=== PATIENT | female | born 1945 | race Caucasian/White ===

== ENCOUNTER 2017-11-19 12:14 | Observation (INO) | payer OTHER ==
--- NOTE | 2017-11-19 12:24 | PDOC ---
History of Present Illness - General Chief Complaint: Shortness of Breath Stated Complaint: DIFFICULTY BREATHING Time Seen by Provider: 11/19/17 12:24 - History of Present Illness Initial Comments: 11/19/17 13:04 Ms. Piper is a 72 yo female w/ pmh of HTN, HLD, DM, and Asthma who presents for evaluation of 2 week cough. Per family she has been coughing up phlegm over this time period and PCP has put her on a steroid taper. She has failed to improve and additionally has been more weak normal. The patient denies chest pain, headache and dizziness. Denies fever, chills, nausea, vomit, diarrhea and constipation. Denies dysuria, frequency, urgency and hematuria. Allergies: Atorvastatin Past History - Past Medical History Allergies/Adverse Reactions: Allergies Allergy/AdvReac Type Severity Reaction Status Date / Time atorvastatin calcium Allergy Mild Verified 11/19/17 12:38 [From Lipitor] Home Medications: Ambulatory Orders Albuterol Sulfate Inhaler - [Ventolin Hfa Inhaler -] 1 - 2 inh PO Q4H 11/19/17 Amoxicillin - [Amoxicillin 500mg Capsule -] 500 mg PO TID 11/19/17 Aspirin [ASA -] 81 mg PO DAILY 11/19/17 Cyanocobalamin (Vitamin B-12) [Vitamin B-12] 5,000 mcg PO DAILY 11/19/17 Fluticasone/Salmeterol [Advair 250-50 Diskus] 1 each IH DAILY 11/19/17 Ibuprofen [Motrin -] 600 mg PO TID 11/19/17 Losartan Potassium 50 mg PO DAILY 11/19/17 Metformin HCl [Metformin HCl ER] 500 mg PO BID 11/19/17 Mirtazapine 30 mg PO HS 11/19/17 Paroxetine HCl [Paxil] 20 mg PO DAILY 11/19/17 Spironolactone 25 mg PO DAILY 11/19/17 Umeclidinium [place] [Incruse Ellipta] 62.5 mcg IH DAILY 11/19/17 predniSONE [Deltasone -] 10 mg PO DAILY 11/19/17 Cancer: No Diabetes: Yes HTN: Yes Hypercholesterolemia: Yes - Suicide/Smoking/Psychosocial Hx Smoking Status: No Smoking History: Never smoked Have you smoked in the past 12 months: No Number of Cigarettes Smoked Daily: 0 Hx Alcohol Use: No Drug/Substance Use Hx: No Substance Use Type: None Hx Substance Use Treatment: No Review of Systems - Review of Systems Comments:: 11/19/17 13:08 GENERAL/CONSTITUTIONAL: No fever or chills. No weakness. HEAD, EYES, EARS, NOSE AND THROAT: No change in vision. No ear pain or discharge. No sore throat. CARDIOVASCULAR: No chest pain or shortness of breath RESPIRATORY: +Constant dry cough. No wheezing or hemoptysis. GASTROINTESTINAL: No nausea, vomiting, diarrhea or constipation. GENITOURINARY: No dysuria, frequency, or change in urination. MUSCULOSKELETAL: No joint or muscle swelling or pain. No neck or back pain. SKIN: No rash NEUROLOGIC: No headache, vertigo, loss of consciousness, or change in strength/ sensation. ENDOCRINE: No increased thirst. No abnormal weight change HEMATOLOGIC/LYMPHATIC: No anemia, easy bleeding, or history of blood clots. ALLERGIC/IMMUNOLOGIC: No hives or skin allergy. *Physical Exam - Physical Exam Comments: 11/19/17 13:08 GENERAL: Awake, alert, and fully oriented, in no acute distress HEAD: No signs of trauma, normocephalic, atraumatic EYES: PERRLA, EOMI, sclera anicteric, conjunctiva clear ENT: Auricles normal inspection, hearing grossly normal, nares patent, oropharynx clear without exudates. Moist mucosa NECK: Normal ROM, supple, no lymphadenopathy, JVD, or masses LUNGS: No distress, speaks full sentences, clear to auscultation bilaterally HEART: Regular rate and rhythm, normal S1 and S2, no murmurs, rubs or gallops, peripheral pulses normal and equal bilaterally. ABDOMEN: Soft, nontender, normoactive bowel sounds. No guarding, no rebound. No masses EXTREMITIES: Normal inspection, Normal range of motion, no edema. No clubbing or cyanosis. NEUROLOGICAL: Cranial nerves II through XII grossly intact. Normal speech, normal gait, no focal sensorimotor deficits SKIN: Warm, Dry, normal turgor, no rashes or lesions noted. ED Treatment Course - LABORATORY CBC & Chemistry Diagram: 11/19/17 13:00 11/19/17 13:00 Medical Decision Making - Medical Decision Making 11/19/17 14:25 Ms. Piper is a 72 yo female w/ pmh as described who presents for evaluation of asthma exacerbation. Patient somewhat improved with duonebs however still weak appearing. CXR significant for enlarged heart with elevated right diaphragm however without acute process. 11/19/17 14:28 Patient continues to cough and has failed outpatient therapy. Chest PA/Lat ordered for closer evaluation of pulmonary status. Inpatient team paged for observation and pulm consult. *DC/Admit/Observation/Transfer Diagnosis at time of Disposition: Asthma exacerbation Qualifiers: Asthma severity: unspecified severity Asthma persistence: unspecified Qualified Code(s): J45.901 - Unspecified asthma with (acute) exacerbation - Discharge Dispostion Decision to Admit order: Yes - Referrals Referrals: aVlente Lockhart PA [Primary Care Provider] - - Patient Instructions - Post Discharge Activity
[2017-11-19] MEDS: ALBUTEROL SO4 2.5/IPRATROPIUM 0.5 INH SOL 3 ML VIAL.NEB. NEB SCH ×5 (12:30→19:55)
[2017-11-19] MEDS ORDERED: ALBUTEROL SO4 2.5/IPRATROPIUM 0.5 INH SOL 3 ML VIAL.NEB. NEB ONE ×2 (12:50→20:17)
[2017-11-19 13:31] LABS: BASO % 0.3 % (0-2.0); EOS % 0.2 % (0-4.5); HEMATOCRIT 42.4 % (32.4-45.2); HEMOGLOBIN 14.1 GM/dL (10.7-15.3); LYMPH % 42.8 % (8-40); MCH 28.1 pg (25.7-33.7); MCHC 33.3 g/dl (32.0-36.0); MEAN CELL VOLUME 84.2 fl (80-96); MEAN PLT VOLUME 8.6 fl (7.5-11.1); MONO % 6.7 % (3.8-10.2); PLATELET COUNT 315 K/MM3 (134-434); RBC 5.04 M/mm3 (3.60-5.2); WHITE BLOOD COUNT 10.8 K/mm3 (4.0-10.0)
[2017-11-19 13:48] LABS: CHLORIDE 107 mmol/L (98-107); POTASSIUM 3.7 mmol/L (3.5-5.1); SODIUM 142 mmol/L (136-145)
--- NOTE | 2017-11-19 13:48 | PDOC ---
Attending Attestation - Resident Resident Name: [email or web address] - ED Attending Attestation I have performed the following: I have examined & evaluated the patient, The case was reviewed & discussed with the resident, I agree w/resident's findings & plan - HPI HPI: 11/19/17 13:46 72-year-old female with history of asthma/emphysema presents with persisting cough despite outpatient treatment with steroid course, now with increasing generalized weakness and malaise and dyspnea, cough productive of sputum, no chest pain or lung pain. Positive chills, no measured fevers. No recent travel. - Physicial Exam PE: 11/19/17 13:46 Vital signs are normal but on my examination patient is visibly tachypnea, speaking about 4-5 words at a time No JVD, heart is regular Lungs are clear, no audible wheezing or focally decreased breath sounds No edema or calf tenderness - Medical Decision Making 11/19/17 13:47 Patient seen and evaluated with the resident. I agree with the overall evaluation, assessment, and management with the following summary of visit: 72-year-old female with history of asthma/emphysema presents with persistent/ worsening cough and dyspnea. Rule out pneumonia, otherwise asthma/COPD exacerbation. Improving with nebulizers Supplemental oxygen Chest x-ray, EKG Labs Admission Heart Score/ECG Review #1 ECG reviewed & interpreted by me at: 12:47 General ECG Interpretation: Sinus Rhythm, Normal Rate (59), Normal Intervals ( qtc 433), No acute ischemic changes
[2017-11-19 14:37] LABS: ALBUMIN 4.1 g/dl (3.4-5.0); ANION GAP 13 (8-16); BLOOD UREA NITROGEN 19 mg/dL (7-18); CALCIUM 9.5 mg/dL (8.5-10.1); CO2 22 mmol/L (21-32); CREATININE 0.9 mg/dL (0.55-1.02); GLUCOSE,RANDOM 79 mg/dL (74-106)
[2017-11-19 14:40] LABS: ALK PHOS 48 U/L (45-117); BILIRUBIN,TOTAL 0.7 mg/dL (0.2-1.0); SGOT/AST 20 U/L (15-37); SGPT/ALT 42 U/L (12-78); TOT PROT 7.1 g/dl (6.4-8.2)
--- NOTE | 2017-11-19 14:52 | EKG ---
Test Reason : Blood Pressure : / mmHG Vent. Rate : 059 BPM Atrial Rate : 059 BPM P-R Int : 136 ms QRS Dur : 086 ms QT Int : 438 ms P-R-T Axes : 037 016 016 degrees QTc Int : 433 ms SINUS BRADYCARDIA NONSPECIFIC T WAVE ABNORMALITY ABNORMAL ECG WHEN COMPARED WITH ECG OF 10-NOV-2012 16:33, NONSPECIFIC T WAVE ABNORMALITY HAS REPLACED INVERTED T WAVES IN ANTERIOR LEADS Confirmed by MD Ernie, Oz ([id number]) on 11/19/2017 2:51:39 PM Referred By: Confirmed By:Oz Klein MD
[2017-11-19] MEDS ORDERED: AZITHROMYCIN IVPB 500 MG in DEXTROSE 5%-WATER - 250 ML IVPB ONE (15:02)
[2017-11-19] MEDS ORDERED: AZITHROMYCIN IVPB 250 ML IVPB ONE (15:51)
[2017-11-19 16:46] LABS: URINE APPEARANCE CLEAR; URINE BILIRUBIN NEGATIVE (<2.0 mg/dL); URINE COLOR STRAW; URINE GLUCOSE (UA) NEGATIVE (NEGATIVE); URINE KETONE NEGATIVE (NEGATIVE); URINE LEUK ESTERASE NEGATIVE (NEGATIVE); URINE NITRITE NEGATIVE (NEGATIVE); URINE PROTEIN NEGATIVE (NEGATIVE); URINE UROBILINOGEN NEGATIVE mg/dL (0.2-1.0)
[2017-11-19] MEDS ORDERED: ALBUTEROL SO4 2.5/IPRATROPIUM 0.5 INH SOL 3 ML VIAL.NEB. NEB PRN (17:20)
[2017-11-19] MEDS ORDERED: ALBUTEROL SO4 18 GM HFA INHALER IH PRN (17:30)
[2017-11-19] MEDS ORDERED: methylPREDNISolone NA SUCC 125 MG/2 ML VIAL IVPUSH SCH (17:30)
[2017-11-19] MEDS ORDERED: CEFTRIAXONE 2 GM in DEXTROSE 5%-WATER 100 ML IVPB ONE (17:30)
--- NOTE | 2017-11-19 17:46 | PN ---
Teaching Attending Note Name of Resident: Brandon Maki ATTENDING PHYSICIAN STATEMENT I saw and evaluated the patient. I reviewed the resident's note and discussed the case with the resident. I agree with the resident's findings and plan as documented with exceptions below. SUBJECTIVE: 72 yof with PMHx of asthma, well controlled, NIDDM, HTN, ?CAD, ?clot in vessel, unclear if cardiac vs PE ( on medication ?blood thinner for 3 years), none recently, comes with 2 weeks of shortness of breath and cough with clear sputum , failed 2 trials of steroid taper, came to ED. Denies any fevers, chills, URI like illness, chest pain, abdominal or urinary symptoms. Overall feels unchanged in the ED. OBJECTIVE: Vital Signs Period Temp Pulse Resp BP Sys/Davila Pulse Ox Last 24 Hr 97.9 F 62 16 134/81 100-100 Intake & Output 11/16/17 11/17/17 11/18/17 11/19/17 23:59 23:59 23:59 23:59 Weight 140 lb GENERAL: Awake, alert, and fully oriented, in no acute distress, no use of acessory muscles of respiration, able to talk in full sentences, comfortably sitting in stretcher. HEAD: Normal with no signs of trauma. EYES: Pupils equal, round and reactive to light, extraocular movements intact, sclera anicteric, conjunctiva clear. No lid lag. EARS, NOSE, THROAT: Ears normal, nares patent, oropharynx clear without exudates. Moist mucous membranes. NECK: soft, supple, no JVD LUNGS: few fine bibasilar rales, good air entry bilaterally, no wheezing noted HEART: S1S2 regular ABDOMEN: Soft, nontender, not distended, normoactive bowel sounds, no guarding, no rebound, no masses. MUSCULOSKELETAL: Normal range of motion at all joints. No bony deformities or tenderness. No CVA tenderness. UPPER EXTREMITIES: 2+ pulses, warm, well-perfused. No cyanosis. No clubbing. No peripheral edema. LOWER EXTREMITIES: 2+ pulses, warm, well-perfused. No calf tenderness. No peripheral edema. NEUROLOGICAL: facial symmetry, moves all extremities freely, grossly nonfocal PSYCHIATRIC: Cooperative. Good eye contact. Appropriate mood and affect. SKIN: Warm, dry, normal turgor, no rashes or lesions noted, normal capillary refill. Home Medication List Medication Instructions Recorded Confirmed Type Albuterol Sulfate Inhaler - 1 - 2 inh PO Q4H 11/19/17 11/19/17 History [Ventolin Hfa Inhaler -] Amoxicillin - [Amoxicillin 500mg 500 mg PO TID 11/19/17 11/19/17 History Capsule -] Aspirin [ASA -] 81 mg PO DAILY 11/19/17 11/19/17 History Cyanocobalamin (Vitamin B-12) 5,000 mcg PO DAILY 11/19/17 11/19/17 History [Vitamin B-12] Fluticasone/Salmeterol [Advair 1 each IH DAILY 11/19/17 11/19/17 History 250-50 Diskus] Ibuprofen [Motrin -] 600 mg PO TID 11/19/17 11/19/17 History Losartan Potassium 50 mg PO DAILY 11/19/17 11/19/17 History Metformin HCl [Metformin HCl ER] 500 mg PO BID 11/19/17 11/19/17 History Mirtazapine 30 mg PO HS 11/19/17 11/19/17 History Paroxetine HCl [Paxil] 20 mg PO DAILY 11/19/17 11/19/17 History Spironolactone 25 mg PO DAILY 11/19/17 11/19/17 History Umeclidinium [place] [Incruse 62.5 mcg IH DAILY 11/19/17 11/19/17 History Ellipta] predniSONE [Deltasone -] 10 mg PO DAILY 11/19/17 11/19/17 History Active Medications Generic Name Dose Route Start Last Admin Trade Name Freq PRN Reason Stop Dose Admin Albuterol Sulfate 2 puff 11/19/17 17:30 Ventolin Hfa Inhaler - IH Q4H PRN SHORTNESS OF BREATH Albuterol/Ipratropium 1 amp 11/19/17 20:00 Duoneb - NEB RTID [facility] Albuterol/Ipratropium 1 amp 11/19/17 17:20 Duoneb - NEB Q6H PRN ASTHMA Aspirin 81 mg 11/20/17 10:00 Asa - PO DAILY [facility] Budesonide/Formoterol Fumarate 2 puff 11/20/17 10:00 Symbicort 80/4.5mcg - IH BID [facility] Cyanocobalamin 5,000 mcg 11/20/17 10:00 Vitamin B12 - PO DAILY [facility] Heparin Sodium (Porcine) 5,000 unit 11/19/17 22:00 Heparin - SQ TID [facility] Ceftriaxone Sodium 2 gm/ 100 mls @ 200 mls/hr 11/19/17 17:30 Dextrose IVPB 11/19/17 17:59 ONCE ONE Protocol Ibuprofen 600 mg 11/19/17 22:00 Motrin - PO TID [facility] Losartan Potassium 50 mg 11/20/17 10:00 Cozaar - PO DAILY [facility] Mirtazapine 30 mg 11/19/17 22:00 Remeron - PO HS [facility] Paroxetine HCl 20 mg 11/20/17 10:00 Paxil - PO DAILY [facility] Prednisone 50 mg 11/19/17 17:45 Deltasone - PO DAILY [facility] Spironolactone 25 mg 11/20/17 10:00 Aldactone - PO DAILY [facility] Laboratory Results - last 24 hr 11/19/17 11/19/17 11/19/17 13:00 13:00 15:52 WBC 10.8 H D RBC 5.04 D Hgb 14.1 D Hct 42.4 MCV 84.2 MCH 28.1 MCHC 33.3 RDW 14.0 Plt Count 315 MPV 8.6 D Absolute Neuts (auto) 5.4 Neutrophils % 50.0 Lymphocytes % 42.8 H Monocytes % 6.7 Eosinophils % 0.2 D Basophils % 0.3 Nucleated RBC % 0 Sodium 142 Potassium 3.7 Chloride 107 Carbon Dioxide 22 Anion Gap 13 BUN 19 H Creatinine 0.9 Creat Clearance w eGFR > 60 Random Glucose 79 Calcium 9.5 Total Bilirubin 0.7 D AST 20 ALT 42 Alkaline Phosphatase 48 Creatine Kinase 95 Troponin I < 0.02 Total Protein 7.1 Albumin 4.1 Urine Color Straw Urine Appearance Clear Urine pH 7.0 Ur Specific [place] 1.008 Urine Protein Negative Urine Glucose (UA) Negative Urine Ketones Negative Urine Blood Negative Urine Nitrite Negative Urine Bilirubin Negative Urine Urobilinogen Negative Ur Leukocyte Esterase Negative CXR image and results reviewed EKG NSR, Flat T in V4, T inversion in V5, no prior available for comparison ASSESSMENT AND PLAN: 72 yof with pMHx of asthma, NIDDM, HTN, ?unclear cardiac vs PE history here with 2 weeks of shortness of breath outpatient steroid treatment x 2. -Dyspnea, ?resolving asthma exacerbation, no clear evidence of PNA, r/o PE, not suspicious for cardiac concerns based on presentation -NIDDM -HTN -?Cardiac history vs PE Plan: PRednisone 50 mg po with taper, standing and prn nebs, Good air entry with no wheezing currently argues against concerning asthma exacerbation. ?Basilar rales. Also unclear if h/o PE. Check CTA chest r/o PE, assess pulmonary parenchyma. Ceftriaxone/azithromycin x 1, further dosing based on chest imaging and clinical course. Continue home spironolactone/losartan. ?cardiac history, check 2D echo. Hold metformin given contrast as above. ISS, diabetic diet. Continue mirtazapine/paroxetine. DVTPPX with lovenox Recurrent visits to health care with steroid treatment x 2 over last 2 week. Will admit to obs, w/u as above. d/c in 24 hours if w/u unrevealing and no new clinical concerns. Plan discussed with patient and family. Total admit time 55 min.
[2017-11-19] MEDS ORDERED: predniSONE 20 MG TABLET (UD) ONE (18:07)
[2017-11-19] MEDS ORDERED: predniSONE 10 MG TABLET (UD) ONE (18:07)
[2017-11-19] MEDS ORDERED: CEFTRIAXONE 2 GM/100 ML BAG IVPB ONE (18:13)
--- NOTE | 2017-11-19 18:34 | HP ---
CHIEF COMPLAINT: cough, sob PCP: Dr. Lockhart HISTORY OF PRESENT ILLNESS: Family at bedside aided in adding to pt history. Pt is a 72 y/o F with PMH HTN, HLD, DM, Asthma, remote "blocked vein" 5 years ago (unclear if cardiac vs pulmonary, but pt apparently had a cath of some kind from the groin ? PCI vs thrombectomy and was placed on blood thinner for 3 years ). She presents to ED with complaint of cough and sob beginning 2 weeks ago. Pt first went to her PCP who gave her a trial of steroids 40mg, daily x 5 days. She felt better with that, but symptoms returned. She went to [facility] 1 week ago and received multiple rounds of nebs for about 4 hours and was sent home with steroids (unknown dose). She now comes to [facility] ED with the same complaint. Cough is productive of clear sputum. Denies fever, chills, sick contacts, recent travel. 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 20 y ago 5 cig/d for many years Alcohol: denies Drugs: denies Family History: denies Allergies atorvastatin calcium [From Lipitor] Allergy (Mild, Verified 11/19/17 12:38) HOME MEDICATIONS: Home Medications Medication Instructions Recorded Albuterol Sulfate Inhaler - 1 - 2 inh PO Q4H 11/19/17 [Ventolin Hfa Inhaler -] Amoxicillin - [Amoxicillin 500mg 500 mg PO TID 11/19/17 Capsule -] Aspirin [ASA -] 81 mg PO DAILY 11/19/17 Cyanocobalamin (Vitamin B-12) 5,000 mcg PO DAILY 11/19/17 [Vitamin B-12] Fluticasone/Salmeterol [Advair 1 each IH DAILY 11/19/17 250-50 Diskus] Ibuprofen [Motrin -] 600 mg PO TID 11/19/17 Losartan Potassium 50 mg PO DAILY 11/19/17 Metformin HCl [Metformin HCl ER] 500 mg PO BID 11/19/17 Mirtazapine 30 mg PO HS 11/19/17 Paroxetine HCl [Paxil] 20 mg PO DAILY 11/19/17 Spironolactone 25 mg PO DAILY 11/19/17 Umeclidinium [place] [Incruse 62.5 mcg IH DAILY 11/19/17 Ellipta] predniSONE [Deltasone -] 10 mg PO DAILY 11/19/17 REVIEW OF SYSTEMS CONSTITUTIONAL: Absent: fever, chills, diaphoresis, generalized weakness, malaise, loss of appetite, weight change HEENT: Absent: rhinorrhea, nasal congestion, throat pain, throat swelling, difficulty swallowing, mouth swelling, ear pain, eye pain, visual changes CARDIOVASCULAR: Absent: chest pain, syncope, palpitations, irregular heart rate, lightheadedness , peripheral edema RESPIRATORY: cough, shortness of breath Absent: , dyspnea with exertion, orthopnea, wheezing, stridor, hemoptysis GASTROINTESTINAL: Absent: abdominal pain, abdominal distension, nausea, vomiting, diarrhea, constipation, melena, hematochezia GENITOURINARY: Absent: dysuria, frequency, urgency, hesitancy, hematuria, flank pain, genital pain MUSCULOSKELETAL: Absent: myalgia, arthralgia, joint swelling, back pain, neck pain SKIN: Absent: rash, itching, pallor HEMATOLOGIC/IMMUNOLOGIC: Absent: easy bleeding, easy bruising, lymphadenopathy, frequent infections ENDOCRINE: Absent: unexplained weight gain, unexplained weight loss, heat intolerance, cold intolerance NEUROLOGIC: Absent: headache, focal weakness or paresthesias, dizziness, unsteady gait, seizure, mental status changes, bladder or bowel incontinence PSYCHIATRIC: Absent: anxiety, depression, suicidal or homicidal ideation, hallucinations. PHYSICAL EXAMINATION Vital Signs - 24 hr 11/19/17 11/19/17 12:35 12:40 Temperature 97.9 F Pulse Rate 62 Respiratory 16 Rate Blood Pressure 134/81 O2 Sat by Pulse 100 100 Oximetry (%) Gen: lying in bed, NAD HEENT: NCAT, EOMI Neck: supple no jvd Cardio: RRR, n s1s2, no m/r/g Pulm: CTA b/l Abd: soft nontender Ext: 2+ pulses, no edema, [place] neg, calves equal Laboratory Results - last 24 hr 11/19/17 11/19/17 11/19/17 13:00 13:00 15:52 WBC 10.8 H D RBC 5.04 D Hgb 14.1 D Hct 42.4 MCV 84.2 MCH 28.1 MCHC 33.3 RDW 14.0 Plt Count 315 MPV 8.6 D Absolute Neuts (auto) 5.4 Neutrophils % 50.0 Lymphocytes % 42.8 H Monocytes % 6.7 Eosinophils % 0.2 D Basophils % 0.3 Nucleated RBC % 0 Sodium 142 Potassium 3.7 Chloride 107 Carbon Dioxide 22 Anion Gap 13 BUN 19 H Creatinine 0.9 Creat Clearance w eGFR > 60 Random Glucose 79 Calcium 9.5 Total Bilirubin 0.7 D AST 20 ALT 42 Alkaline Phosphatase 48 Creatine Kinase 95 Troponin I < 0.02 Total Protein 7.1 Albumin 4.1 Urine Color Straw Urine Appearance Clear Urine pH 7.0 Ur Specific [place] 1.008 Urine Protein Negative Urine Glucose (UA) Negative Urine Ketones Negative Urine Blood Negative Urine Nitrite Negative Urine Bilirubin Negative Urine Urobilinogen Negative Ur Leukocyte Esterase Negative ASSESSMENT/PLAN: Pt is a 72 y/o F with PMH HTN, DM, HLD, Asthma who presents to ED with complaint of cough & SOB. Pt is placed on Obs for asthma refractory to out pt mgt. #Asthma exacerbation -Persists in spite of 2 courses of steroids and an ED visit -no wheezing on exam -CXR with ? opacification of L lower lobe -got nebs and azithro in ED -CXR PA & Lat -r/o PE with CTA chest. Wells score 1.5 if previous episode was a PE -nebs standing and prn -rocephin #HTN -Cozaar -Aldactone #HLD -per pt. no med on home list -lipids #DM -BGM -ISS #FEN -not on fluids -lytes wnl -Na controlled diet #PPx -Hep Sub Q #Dispo -Obs for asthma exacerbation Brandon Maki MD PGY-1 IM Visit type - Emergency Visit Emergency Visit: Yes Care time: The patient presented to the Emergency Department on the above date and was hospitalized for further evaluation of their emergent condition. - New Patient This patient is new to me today: Yes Date on this admission: 11/19/17 - Critical Care Critical Care patient: No Hospitalist Screening - Colonoscopy Questionnaire Colonoscopy Questionnaire: Colonoscopy Questionnaire - Patient: 50 - 75 years old and never had a screening colonoscopy: Unknown History of colon or rectal polyps, or CA: Unknown History of IBD, Crohn's disease or UC: Unknown History of abdominal radiation therapy as a child: Unknown - Relative: 1 with colon or rectal CA, or polyps at age 60 or younger: Unknown Colon or rectal CA diagnosed at age 45 or younger: Unknown Multiple relatives with colon or rectal CA: Unknown - Outcome: Screening Result: Negative Screen
[2017-11-19] MEDS: predniSONE 20 MG TABLET (UD) PO SCH (19:28)
[2017-11-19] MEDS ORDERED: MIRTAZAPINE 30 MG TABLET (FP) PO SCH (22:00)
[2017-11-19] MEDS: IBUPROFEN 600 MG TABLET (FP) PO SCH (23:02)
[2017-11-19] MEDS: HEPARIN NA (PORCINE) 5,000 UNITS/ML 1ML VIAL SQ SCH (23:03)
[2017-11-19] MEDS: INSULIN SLIDING SCALE (NOVOLOG) 1 VIAL SQ SCH (23:08)
[2017-11-20 02:09] VITALS: BMI 22.8
[2017-11-20] MEDS: IBUPROFEN 600 MG TABLET (FP) PO SCH ×2 (05:37→15:03)
[2017-11-20] MEDS: HEPARIN NA (PORCINE) 5,000 UNITS/ML 1ML VIAL SQ SCH ×2 (05:38→15:03)
[2017-11-20] MEDS: INSULIN SLIDING SCALE (NOVOLOG) 1 VIAL SQ SCH ×3 (06:29→17:18)
[2017-11-20] MEDS: ALBUTEROL SO4 2.5/IPRATROPIUM 0.5 INH SOL 3 ML VIAL.NEB. NEB SCH ×2 (08:05→14:20)
[2017-11-20 08:20] LABS: BASO % 0.3 % (0-2.0); HEMATOCRIT 41.1 % (32.4-45.2); HEMOGLOBIN 13.9 GM/dL (10.7-15.3); LYMPH % 12.2 % (8-40); MCH 28.8 pg (25.7-33.7); MCHC 33.8 g/dl (32.0-36.0); MEAN CELL VOLUME 85.3 fl (80-96); MEAN PLT VOLUME 8.1 fl (7.5-11.1); MONO % 1.8 % (3.8-10.2); NEUT % 85.7 % (42.8-82.8); PLATELET COUNT 284 K/MM3 (134-434); RBC 4.82 M/mm3 (3.60-5.2); RDW 14.3 % (11.6-15.6); WHITE BLOOD COUNT 8.2 K/mm3 (4.0-10.0)
[2017-11-20 08:35] LABS: PROTHROMBIN TIME (PATIENT) 11.3 SEC (9.7-13.0)
[2017-11-20 08:47] LABS: ALBUMIN 3.7 g/dl (3.4-5.0); ANION GAP 8 (8-16); BLOOD UREA NITROGEN 13 mg/dL (7-18); CALCIUM 8.9 mg/dL (8.5-10.1); CHLORIDE 107 mmol/L (98-107); CO2 27 mmol/L (21-32); GLUCOSE,RANDOM 133 mg/dL (74-106); MAGNESIUM 2.5 mg/dL (1.8-2.4); POTASSIUM 4.4 mmol/L (3.5-5.1); SGOT/AST 13 U/L (15-37); SODIUM 142 mmol/L (136-145)
[2017-11-20 08:50] LABS: ALK PHOS 46 U/L (45-117); BILIRUBIN,TOTAL 0.5 mg/dL (0.2-1.0); CREATININE 0.9 mg/dL (0.55-1.02); PHOSPHOROUS 5.4 mg/dL (2.5-4.9); SGPT/ALT 40 U/L (12-78); TOT PROT 6.9 g/dl (6.4-8.2)
[2017-11-20 08:55] LABS: CHOLESTEROL 183 mg/dL (50-200); HDL CHOLESTEROL 70 mg/dL (40-60); TRIGLYCERIDES 63 mg/dL (35-160)
[2017-11-20] MEDS ORDERED: SPIRONOLACTONE 25 MG TABLET (FP) PO SCH (10:00)
[2017-11-20] MEDS ORDERED: CYANOCOBALAMIN 1,000 MCG TABLET (FP) PO SCH (10:00)
[2017-11-20] MEDS ORDERED: PARoxetine HCL 20 MG TABLET (FP) PO SCH (10:00)
[2017-11-20] MEDS ORDERED: ASPIRIN 81 MG CHEWABLE TABLETS PO SCH (10:00)
[2017-11-20] MEDS ORDERED: AZITHROMYCIN 250 MG TABLET PO SCH (10:00)
[2017-11-20] MEDS ORDERED: BUDESONIDE/FORMETEROL FUMARATE 80/4.5 mcg INHALER IH SCH (10:00)
[2017-11-20] MEDS ORDERED: LOSARTAN POTASSIUM 50 MG TABLET (FP) PO SCH (10:00)
[2017-11-20] MEDS: predniSONE 20 MG TABLET (UD) PO SCH (11:36)
--- NOTE | 2017-11-20 14:50 | PN ---
Physical Exam: SUBJECTIVE: Patient seen and examined at bedside. No complaints. OBJECTIVE: Vital Signs Period Temp Pulse Resp BP Sys/Davila Pulse Ox Last 24 Hr 97.0 F-98.2 F 60-82 17-20 118-152/64-96 96-97 Gen: lying in bed, NAD HEENT: NCAT, EOMI Neck: supple no jvd Cardio: RRR, n s1s2, no m/r/g Pulm: CTA b/l Abd: soft nontender Ext: 2+ pulses, no edema, Wheatley neg, calves equal Laboratory Results - last 24 hr 11/19/17 11/19/17 11/20/17 15:52 23:06 05:37 WBC RBC Hgb Hct MCV MCH MCHC RDW Plt Count MPV Absolute Neuts (auto) Neutrophils % Lymphocytes % Monocytes % Eosinophils % Basophils % Nucleated RBC % PT with INR INR Sodium Potassium Chloride Carbon Dioxide Anion Gap BUN Creatinine Creat Clearance w eGFR POC Glucometer 112 132 Random Glucose Calcium Phosphorus Magnesium Total Bilirubin AST ALT Alkaline Phosphatase Total Protein Albumin Triglycerides Cholesterol Total LDL Cholesterol HDL Cholesterol Urine Color Straw Urine Appearance Clear Urine pH 7.0 Ur Specific [place] 1.008 Urine Protein Negative Urine Glucose (UA) Negative Urine Ketones Negative Urine Blood Negative Urine Nitrite Negative Urine Bilirubin Negative Urine Urobilinogen Negative Ur Leukocyte Esterase Negative 11/20/17 11/20/17 11/20/17 07:20 07:20 07:20 WBC 8.2 RBC 4.82 Hgb 13.9 Hct 41.1 MCV 85.3 MCH 28.8 MCHC 33.8 RDW 14.3 Plt Count 284 MPV 8.1 Absolute Neuts (auto) 7.0 Neutrophils % 85.7 H D Lymphocytes % 12.2 D Monocytes % 1.8 L Eosinophils % 0.0 D Basophils % 0.3 Nucleated RBC % 0 PT with INR 11.30 INR 1.00 Sodium 142 Potassium 4.4 Chloride 107 Carbon Dioxide 27 Anion Gap 8 BUN 13 Creatinine 0.9 Creat Clearance w eGFR > 60 POC Glucometer Random Glucose 133 H Calcium 8.9 Phosphorus 5.4 H Magnesium 2.5 H Total Bilirubin 0.5 D AST 13 L ALT 40 Alkaline Phosphatase 46 Total Protein 6.9 Albumin 3.7 Triglycerides Cholesterol Total LDL Cholesterol HDL Cholesterol Urine Color Urine Appearance Urine pH Ur Specific [place] Urine Protein Urine Glucose (UA) Urine Ketones Urine Blood Urine Nitrite Urine Bilirubin Urine Urobilinogen Ur Leukocyte Esterase 11/20/17 11/20/17 07:20 11:56 WBC RBC Hgb Hct MCV MCH MCHC RDW Plt Count MPV Absolute Neuts (auto) Neutrophils % Lymphocytes % Monocytes % Eosinophils % Basophils % Nucleated RBC % PT with INR INR Sodium Potassium Chloride Carbon Dioxide Anion Gap BUN Creatinine Creat Clearance w eGFR POC Glucometer 78 Random Glucose Calcium Phosphorus Magnesium Total Bilirubin AST ALT Alkaline Phosphatase Total Protein Albumin Triglycerides 63 Cholesterol 183 Total LDL Cholesterol 100 HDL Cholesterol 70 H Urine Color Urine Appearance Urine pH Ur Specific [place] Urine Protein Urine Glucose (UA) Urine Ketones Urine Blood Urine Nitrite Urine Bilirubin Urine Urobilinogen Ur Leukocyte Esterase Active Medications Generic Name Dose Route Start Last Admin Trade Name Freq PRN Reason Stop Dose Admin Albuterol Sulfate 2 puff 11/19/17 17:30 Ventolin Hfa Inhaler - IH Q4H PRN SHORTNESS OF BREATH Albuterol/Ipratropium 1 amp 11/19/17 20:00 11/20/17 14:20 Duoneb - NEB 1 amp RTID WILMAR Administration Albuterol/Ipratropium 1 amp 11/19/17 17:20 Duoneb - NEB Q6H PRN ASTHMA Aspirin 81 mg 11/20/17 10:00 11/20/17 11:36 Asa - PO 81 mg DAILY WILMAR Administration Azithromycin 500 mg 11/20/17 10:00 11/20/17 11:37 Zithromax - PO 11/21/17 10:01 500 mg DAILY WILMAR Administration Budesonide/Formoterol Fumarate 2 puff 11/20/17 10:00 11/20/17 11:32 Symbicort 80/4.5mcg - IH 2 puff BID WILMAR Administration Cyanocobalamin 5,000 mcg 11/20/17 10:00 11/20/17 11:37 Vitamin B12 - PO 5,000 mcg DAILY WILMAR Administration Heparin Sodium (Porcine) 5,000 unit 11/19/17 22:00 11/20/17 05:38 Heparin - SQ 5,000 unit TID WILMAR Administration Ibuprofen 600 mg 11/19/17 22:00 11/20/17 05:37 Motrin - PO 600 mg TID WILMAR Administration Insulin Aspart 1 vial 11/19/17 22:00 11/20/17 12:13 Novolog Vial Sliding Scale - SQ Not Given ACHS WILMAR Protocol Losartan Potassium 50 mg 11/20/17 10:00 11/20/17 11:36 Cozaar - PO 50 mg DAILY WILMAR Administration Mirtazapine 30 mg 11/19/17 22:00 11/19/17 23:03 Remeron - PO 30 mg HS WILMAR Administration Paroxetine HCl 20 mg 11/20/17 10:00 11/20/17 11:36 Paxil - PO 20 mg DAILY WILMAR Administration Prednisone 50 mg 11/19/17 17:45 11/20/17 11:36 Deltasone - PO 50 mg DAILY WILMAR Administration Spironolactone 25 mg 11/20/17 10:00 11/20/17 11:36 Aldactone - PO 25 mg DAILY WILMAR Administration ASSESSMENT/PLAN: Pt is a 72 y/o F with PMH HTN, DM, HLD, Asthma who presents to ED with complaint of cough & SOB. Pt is placed on Obs for asthma refractory to out pt mgt. #Asthma exacerbation -Persists in spite of 2 courses of steroids and an ED visit -no wheezing on exam -CXR with ? opacification of L lower lobe -got nebs and azithro in ED -CXR PA & Lat. Cardiomegally. Plate like atalectasis -r/o PE with CTA chest. Wells score 1.5 if previous episode was a PE. Chest CTA neg -nebs standing and prn -rocephin x 1 -echo unremarkable #HTN -Cozaar -Aldactone #HLD -per pt. no med on home list -lipids #DM -BGM -ISS #FEN -not on fluids -lytes wnl -Na controlled diet #PPx -Hep Sub Q #Dispo -Obs for asthma exacerbation Brandon Maki MD PGY-1 IM
--- NOTE | 2017-11-20 15:44 | PN ---
Teaching Attending Note Name of Resident: Brandon Maki ATTENDING PHYSICIAN STATEMENT I saw and evaluated the patient. I reviewed the resident's note and discussed the case with the resident. I agree with the resident's findings and plan as documented with exceptions below. SUBJECTIVE: patient seen and examined. breathing improved, no complaints. OBJECTIVE: Vital Signs Period Temp Pulse Resp BP Sys/Davila Pulse Ox Last 24 Hr 97.0 F-98.2 F 60-82 17-20 118-152/64-96 96-97 Intake & Output 11/17/17 11/18/17 11/19/17 11/20/17 23:59 23:59 23:59 23:59 Intake Total 100 100 Balance 100 100 Weight 140 lb 133 lb 3 oz General: sitting in bed in no acute distress Chest: no wheezing, good air entry ABdomen:soft, NT Extremities: no edema Laboratory Results - last 24 hr 11/19/17 11/19/17 11/20/17 15:52 23:06 05:37 WBC RBC Hgb Hct MCV MCH MCHC RDW Plt Count MPV Absolute Neuts (auto) Neutrophils % Lymphocytes % Monocytes % Eosinophils % Basophils % Nucleated RBC % PT with INR INR Sodium Potassium Chloride Carbon Dioxide Anion Gap BUN Creatinine Creat Clearance w eGFR POC Glucometer 112 132 Random Glucose Calcium Phosphorus Magnesium Total Bilirubin AST ALT Alkaline Phosphatase Total Protein Albumin Triglycerides Cholesterol Total LDL Cholesterol HDL Cholesterol Urine Color Straw Urine Appearance Clear Urine pH 7.0 Ur Specific [place] 1.008 Urine Protein Negative Urine Glucose (UA) Negative Urine Ketones Negative Urine Blood Negative Urine Nitrite Negative Urine Bilirubin Negative Urine Urobilinogen Negative Ur Leukocyte Esterase Negative 11/20/17 11/20/17 11/20/17 07:20 07:20 07:20 WBC 8.2 RBC 4.82 Hgb 13.9 Hct 41.1 MCV 85.3 MCH 28.8 MCHC 33.8 RDW 14.3 Plt Count 284 MPV 8.1 Absolute Neuts (auto) 7.0 Neutrophils % 85.7 H D Lymphocytes % 12.2 D Monocytes % 1.8 L Eosinophils % 0.0 D Basophils % 0.3 Nucleated RBC % 0 PT with INR 11.30 INR 1.00 Sodium 142 Potassium 4.4 Chloride 107 Carbon Dioxide 27 Anion Gap 8 BUN 13 Creatinine 0.9 Creat Clearance w eGFR > 60 POC Glucometer Random Glucose 133 H Calcium 8.9 Phosphorus 5.4 H Magnesium 2.5 H Total Bilirubin 0.5 D AST 13 L ALT 40 Alkaline Phosphatase 46 Total Protein 6.9 Albumin 3.7 Triglycerides Cholesterol Total LDL Cholesterol HDL Cholesterol Urine Color Urine Appearance Urine pH Ur Specific [place] Urine Protein Urine Glucose (UA) Urine Ketones Urine Blood Urine Nitrite Urine Bilirubin Urine Urobilinogen Ur Leukocyte Esterase 11/20/17 11/20/17 07:20 11:56 WBC RBC Hgb Hct MCV MCH MCHC RDW Plt Count MPV Absolute Neuts (auto) Neutrophils % Lymphocytes % Monocytes % Eosinophils % Basophils % Nucleated RBC % PT with INR INR Sodium Potassium Chloride Carbon Dioxide Anion Gap BUN Creatinine Creat Clearance w eGFR POC Glucometer 78 Random Glucose Calcium Phosphorus Magnesium Total Bilirubin AST ALT Alkaline Phosphatase Total Protein Albumin Triglycerides 63 Cholesterol 183 Total LDL Cholesterol 100 HDL Cholesterol 70 H Urine Color Urine Appearance Urine pH Ur Specific [place] Urine Protein Urine Glucose (UA) Urine Ketones Urine Blood Urine Nitrite Urine Bilirubin Urine Urobilinogen Ur Leukocyte Esterase ASSESSMENT AND PLAN: 72 yof with pMHx of asthma, NIDDM, HTN, ?unclear cardiac vs PE history here with 2 weeks of shortness of breath outpatient steroid treatment x 2. -Dyspnea, ?resolving asthma exacerbation, no clear evidence of PNA, r/o PE, not suspicious for cardiac concerns based on presentation -NIDDM -HTN -?Cardiac history vs PE Plan: breathing improved, no oxygen needs. CTA chest and 2D echo non concerning. short prednisone taper. Hold metformin x 48 hours post contrast. Discussed with patient and family at bedside. D/c home today.
--- NOTE | 2017-11-20 15:51 | DS ---
Physical Exam: SUBJECTIVE: Patient seen and examined at bedside. No complaints. OBJECTIVE: Vital Signs Period Temp Pulse Resp BP Sys/Davila Pulse Ox Last 24 Hr 97.0 F-98.2 F 60-82 17-20 118-152/64-96 96-97 PHYSICAL EXAM Gen: lying in bed, NAD HEENT: NCAT, EOMI Neck: supple no jvd Cardio: RRR, n s1s2, no m/r/g Pulm: CTA b/l Abd: soft nontender Ext: 2+ pulses, no edema, Wheatley neg, calves equal LABS Laboratory Results - last 24 hr 11/19/17 11/19/17 11/20/17 15:52 23:06 05:37 WBC RBC Hgb Hct MCV MCH MCHC RDW Plt Count MPV Absolute Neuts (auto) Neutrophils % Lymphocytes % Monocytes % Eosinophils % Basophils % Nucleated RBC % PT with INR INR Sodium Potassium Chloride Carbon Dioxide Anion Gap BUN Creatinine Creat Clearance w eGFR POC Glucometer 112 132 Random Glucose Calcium Phosphorus Magnesium Total Bilirubin AST ALT Alkaline Phosphatase Total Protein Albumin Triglycerides Cholesterol Total LDL Cholesterol HDL Cholesterol Urine Color Straw Urine Appearance Clear Urine pH 7.0 Ur Specific [place] 1.008 Urine Protein Negative Urine Glucose (UA) Negative Urine Ketones Negative Urine Blood Negative Urine Nitrite Negative Urine Bilirubin Negative Urine Urobilinogen Negative Ur Leukocyte Esterase Negative 11/20/17 11/20/17 11/20/17 07:20 07:20 07:20 WBC 8.2 RBC 4.82 Hgb 13.9 Hct 41.1 MCV 85.3 MCH 28.8 MCHC 33.8 RDW 14.3 Plt Count 284 MPV 8.1 Absolute Neuts (auto) 7.0 Neutrophils % 85.7 H D Lymphocytes % 12.2 D Monocytes % 1.8 L Eosinophils % 0.0 D Basophils % 0.3 Nucleated RBC % 0 PT with INR 11.30 INR 1.00 Sodium 142 Potassium 4.4 Chloride 107 Carbon Dioxide 27 Anion Gap 8 BUN 13 Creatinine 0.9 Creat Clearance w eGFR > 60 POC Glucometer Random Glucose 133 H Calcium 8.9 Phosphorus 5.4 H Magnesium 2.5 H Total Bilirubin 0.5 D AST 13 L ALT 40 Alkaline Phosphatase 46 Total Protein 6.9 Albumin 3.7 Triglycerides Cholesterol Total LDL Cholesterol HDL Cholesterol Urine Color Urine Appearance Urine pH Ur Specific [place] Urine Protein Urine Glucose (UA) Urine Ketones Urine Blood Urine Nitrite Urine Bilirubin Urine Urobilinogen Ur Leukocyte Esterase 11/20/17 11/20/17 07:20 11:56 WBC RBC Hgb Hct MCV MCH MCHC RDW Plt Count MPV Absolute Neuts (auto) Neutrophils % Lymphocytes % Monocytes % Eosinophils % Basophils % Nucleated RBC % PT with INR INR Sodium Potassium Chloride Carbon Dioxide Anion Gap BUN Creatinine Creat Clearance w eGFR POC Glucometer 78 Random Glucose Calcium Phosphorus Magnesium Total Bilirubin AST ALT Alkaline Phosphatase Total Protein Albumin Triglycerides 63 Cholesterol 183 Total LDL Cholesterol 100 HDL Cholesterol 70 H Urine Color Urine Appearance Urine pH Ur Specific [place] Urine Protein Urine Glucose (UA) Urine Ketones Urine Blood Urine Nitrite Urine Bilirubin Urine Urobilinogen Ur Leukocyte Esterase HOSPITAL COURSE: Date of Admission:11/19/17 Date of Discharge: 11/20/17 Pt is a 72 y/o F with PMH HTN, DM, HLD, Asthma who presents to ED with complaint of cough & SOB. Pt is placed on Obs for asthma refractory to out pt mgt. Asthma exacerbation was persists in spite of 2 courses of steroids and an ED visit. Pt had no wheezing on initial exam. She had a CXR with ? opacification of L lower lobe. She got nebs and azithro in ED. CXR PA & Lat showed Cardiomegally and plate like atalectasis. PE was ruled out with CTA chest. Wells score 1.5 if previous episode was a PE. Nebs were given standing and prn. She was given rocephin x 1. Echo was unremarkable. Pt's HTN was treated with Cozaar, and Aldactone HLD per pt. No med on home list. Lipids were within normal limits. Pt's DM was treated with BGM and ISS. Pt is stable for discharge. Minutes to complete discharge: 30 Discharge Summary Reason For Visit: EXACERBATION OF ASTHMA Current Active Problems Asthma exacerbation (Acute) Condition: Good - Instructions Diet, Activity, Other Instructions: You were in the hospital because of an asthma exacerbation. You need to follow up with your primary care doctor in 1 week. Make sure you use your inhaler as directed and avoid any known triggers of your asthma. Stop your old regimen of prednisone. Take prednisone 40mg daily for 2 days, 30mg for 2 days, 20mg for 2 days, 10mg for 2 days, then stop. Take 1 dose of Azithromycin tomorrow. Since you received CT scan with dye, do not take Metformin for 2 days, can resume on Saturday or Saturday if no concerns. Recommend to keep any eye on your blood sugars till then. Recommend checking before meals and at bedtime, maintain a diary and notify doctor if persistently > 200. Resume the rest of your home medications as directed and follow up with your primary doctor. Referrals: Valente Lockhart PA [Primary Care Provider] - 1 Week Disposition: HOME - Home Medications Comprehensive Discharge Medication List: Ambulatory Orders Albuterol Sulfate Inhaler - [Ventolin HFA Inhaler -] 1 - 2 inh PO Q4H 11/19/17 Aspirin [ASA -] 81 mg PO DAILY 11/19/17 Cyanocobalamin (Vitamin B-12) [Vitamin B-12] 5,000 mcg PO DAILY 11/19/17 Fluticasone/Salmeterol [Advair 250-50 Diskus] 1 each IH DAILY 11/19/17 Ibuprofen [Motrin -] 600 mg PO TID 11/19/17 Losartan Potassium 50 mg PO DAILY 11/19/17 Mirtazapine 30 mg PO HS 11/19/17 Paroxetine HCl [Paxil] 20 mg PO DAILY 11/19/17 Spironolactone 25 mg PO DAILY 11/19/17 Umeclidinium [place] [Incruse Ellipta] 62.5 mcg IH DAILY 11/19/17 Azithromycin [Zithromax 250mg Tablets -] 500 mg PO DAILY #1 tablet 11/20/17 Metformin HCl [Metformin HCl ER] 500 mg PO ASDIR 30 Days #30 tab 11/20/17 predniSONE [Deltasone -] See Taper PO ASDIR #20 tab 11/20/17 This patient is new to me today: No Emergency Visit: No Critical Care patient: No - Discharge Referral Referred to [facility] No
[2017-11-20 16:35] VITALS: BP 137/80; PULSE 75; TEMP 98.9
== END 2017-11-20 18:18 | disposition home or self-care (01) ==
LOC: JER 12:14 → JERBED 15:14 → J6S 22:19
PROVIDERS: ADMIT Hospitalist; ATTEND Hospitalist
PROC: 3E03329 Introduction of Other Anti-infective into Peripheral Vein, Percutaneous Approach (ICD-10-PCS; principal; 2017-11-19)
PROC: 3E013GC Introduction of Other Therapeutic Substance into Subcutaneous Tissue, Percutaneous Approach (ICD-10-PCS; 2017-11-19)
PROC: 3E0F7GC Introduction of Other Therapeutic Substance into Respiratory Tract, Via Natural or Artificial Opening (ICD-10-PCS; 2017-11-19)
DX: J45.901 Unspecified asthma with (acute) exacerbation (principal); J43.9 Emphysema, unspecified; I10 Essential (primary) hypertension; E78.5 Hyperlipidemia, unspecified; E11.9 Type 2 diabetes mellitus without complications; Z79.82 Long term (current) use of aspirin; Z79.84 Long term (current) use of oral hypoglycemic drugs
CPT/HCPCS: 36415; 71045-TC-FY; 71046-TC-FY; 71275-TC; 80053; 80061; 81003; 82550; 82962; 83721; 83735; 84100; 84484; 85025; 85610; 87086; 93005; 93010; 93306-TC; 94640; 94761; 96365; 96367; 96372; 99285-25; G0378; J1644; J7620

== ENCOUNTER 2019-07-29 08:00 | Day surgery (SDC) | payer OTHER ==
[~2019-07-29 08:00] MED LIST: ACETAMINOPHEN 325 MG TABLET (FP) PO PRN; BUPIVACAINE HCL/PF 0.75% 10 ML VIAL PNB ONE; CYCLOPENTOLATE HCL 1% OPHTH SOLN 2 ML BOTTLE OP SCH; KETOROLAC TROMETHAMINE 0.5% EYE DROP 1 DROP DROPS OP SCH; LIDOCAINE HCL/PF 2% SDV 5ML VIAL INF ONE; LIDOCAINE HCL/PF 2% SDV 5ML VIAL PNB ONE; OFLOXACIN 0.3% OPHTHALMIC SOLUTION 5 ML BOTTLE OP SCH; PHENYLEPHRINE 2.5% OPHTH SOLN 15 ML BOTTLE OP SCH; TROPICAMIDE 1% OPHTH SOLN 15 ML BOTTLE OP SCH
[2019-07-29 09:12] VITALS: BMI 27.3
[2019-07-29] MEDS ORDERED: OFLOXACIN 0.3% OPHTHALMIC SOLUTION 5 ML BOTTLE ONE (09:14)
[2019-07-29] MEDS ORDERED: PHENYLEPHRINE 2.5% OPHTH SOLN 15 ML BOTTLE ONE (09:14)
[2019-07-29] MEDS ORDERED: KETOROLAC TROMETHAMINE 0.5% EYE DROP 1 DROP DROPS ONE (09:14)
[2019-07-29] MEDS ORDERED: TROPICAMIDE 1% OPHTH SOLN 15 ML BOTTLE ONE (09:14)
[2019-07-29] MEDS ORDERED: CYCLOPENTOLATE HCL 1% OPHTH SOLN 2 ML BOTTLE ONE (09:14)
[2019-07-29] MEDS ORDERED: TROPICAMIDE 1% OPHTH SOLN 15 ML BOTTLE OD ONE ×3 (09:25→09:45)
[2019-07-29] MEDS ORDERED: CYCLOPENTOLATE HCL 1% OPHTH SOLN 2 ML BOTTLE OD ONE ×3 (09:25→09:45)
[2019-07-29] MEDS ORDERED: KETOROLAC TROMETHAMINE 0.5% EYE DROP 1 DROP DROPS OD ONE ×3 (09:25→09:45)
[2019-07-29] MEDS ORDERED: PHENYLEPHRINE 2.5% OPHTH SOLN 15 ML BOTTLE OD ONE ×3 (09:25→09:45)
[2019-07-29] MEDS ORDERED: OFLOXACIN 0.3% OPHTHALMIC SOLUTION 5 ML BOTTLE OD ONE ×3 (09:25→09:45)
[2019-07-29] MEDS ORDERED: PROPOFOL 20 ML ONE (10:25)
[2019-07-29] MEDS ORDERED: BUPIVACAINE HCL/PF 0.75% 10 ML VIAL ONE (10:29)
[2019-07-29] MEDS ORDERED: EPINEPHrine/PF 1 MG/1 ML (1:1,000) AMPULE ONE (10:29)
[2019-07-29] MEDS ORDERED: LIDOCAINE HCL/PF 2% SDV 5ML VIAL ONE (10:29)
[2019-07-29] MEDS ORDERED: LIDOCAINE HCL/PF 1% SDV 5ML VIAL ONE (10:30)
[2019-07-29] MEDS ORDERED: BUPIVACAINE HCL/PF 0.75% 10 ML VIAL PNB ONE ×2 (10:41→10:42)
[2019-07-29] MEDS ORDERED: LIDOCAINE HCL/PF 2% SDV 5ML VIAL PNB ONE (10:41)
[2019-07-29] MEDS ORDERED: LIDOCAINE HCL/PF 2% SDV 5ML VIAL INF ONE (10:42)
[2019-07-29] MEDS ORDERED: LIDOCAINE HCL 1% PRESERVATIVE FREE - 30ML VIAL IO ONE (10:52)
[2019-07-29] MEDS ORDERED: CHONDROITIN SU A/HYALUR SOD 1 KIT IO ONE (10:53)
[2019-07-29] MEDS ORDERED: EPINEPHrine/PF 1 MG/1 ML (1:1,000) AMPULE SQ ONE (10:55)
[2019-07-29 11:27] VITALS: TEMP 98.3
[2019-07-29 13:02] VITALS: BP 142/71; PULSE 66
--- NOTE | 2019-07-29 16:36 | SPEC ---
DATE OF OPERATION: DATE OF DICTATION: 07/29/2019 OPERATION: Phacoemulsification with posterior chamber intraocular lens implantation, right eye, lens used [id number], 25.0 Diopter, Serial No. [id number]. PREOPERATIVE DIAGNOSIS: Cataract right eye. POSTOPERATIVE DIAGNOSIS: Cataract right eye. SURGEON: Kristan Cabrera M.D. ANESTHESIA: Peribulbar/Modified [place]/MAC. COMPLICATIONS: None. PROCEDURE: The patient was brought to the operating room and correctly identified along with the operative site and a correct intraocular lens bruce. The patient was then given a peribulbar block under sedation with 5 mL of a 1:1 mixture of 2% Lidocaine and 0.5% Bupivacaine. Two to 3 mL of the same mixture was given as a modified [place] block. The eye was then prepped and draped in the usual sterile fashion including 5% Betadine solution in the conjunctival sac and an eyelid drape. An eyelid speculum was then placed into the eye. A paracentesis port was created. Viscoelastic was injected to inflate the anterior chamber. A temporal clear corneal wound was created. A continuous circular capsulorrhexis was performed. The nucleus was then hydro-dissected and removed phacoemulsification via the [id number] approach. The remaining cortical material was irrigated and aspirated from the eye. Viscoelastic was injected to inflate the capsular bag. The lens was injected into the capsular bag. Viscoelastic was then irrigated and aspirated from the eye. The intraocular lens was noted to be well centered and covered by the anterior capsular border. All wounds were found to be watertight. Topical Vancomycin was given. The eye patch and shield were placed. The patient was discharged from the operating room in stable condition. KRISTAN CABRERA M.D. RAFAELA/[id number]
== END 2019-07-29 12:45 | disposition home or self-care (01) ==
LOC: JASU-SURG 08:00
PROVIDERS: ATTEND Ophthalmology
PROC: 08RJ3JZ Replacement of Right Lens with Synthetic Substitute, Percutaneous Approach (ICD-10-PCS; principal; 2019-07-29 10:00)
DX: H26.9 Unspecified cataract (principal); E11.9 Type 2 diabetes mellitus without complications; I10 Essential (primary) hypertension
CPT/HCPCS: 82962

== ENCOUNTER 2019-08-12 07:18 | Day surgery (SDC) | payer OTHER ==
[2019-08-11 09:10] VITALS: BMI 27.3
[~2019-08-12 07:18] MED LIST changes: -BUPIVACAINE HCL/PF 0.75% 10 ML VIAL PNB ONE; +CHONDROITIN SU A/HYALUR SOD 1 KIT IO ONE; -CYCLOPENTOLATE HCL 1% OPHTH SOLN 2 ML BOTTLE OP SCH; -KETOROLAC TROMETHAMINE 0.5% EYE DROP 1 DROP DROPS OP SCH; +LIDOCAINE HCL 1% PRESERVATIVE FREE - 30ML VIAL IO ONE; -LIDOCAINE HCL/PF 2% SDV 5ML VIAL INF ONE; -LIDOCAINE HCL/PF 2% SDV 5ML VIAL PNB ONE; -OFLOXACIN 0.3% OPHTHALMIC SOLUTION 5 ML BOTTLE OP SCH; -PHENYLEPHRINE 2.5% OPHTH SOLN 15 ML BOTTLE OP SCH; +TETRACAINE 0.5% OPHTH SOLN 2 ML BOTTLE TP ONE
[2019-08-12] MEDS ORDERED: OFLOXACIN 0.3% OPHTHALMIC SOLUTION 5 ML BOTTLE ONE (08:01)
[2019-08-12] MEDS ORDERED: TROPICAMIDE 1% OPHTH SOLN 15 ML BOTTLE ONE (08:02)
[2019-08-12] MEDS ORDERED: KETOROLAC TROMETHAMINE 0.5% EYE DROP 1 DROP DROPS ONE (08:02)
[2019-08-12] MEDS ORDERED: PHENYLEPHRINE 2.5% OPHTH SOLN 15 ML BOTTLE ONE (08:05)
[2019-08-12] MEDS: CYCLOPENTOLATE HCL 1% OPHTH SOLN 2 ML BOTTLE OP SCH ×2 (08:31→08:51)
[2019-08-12] MEDS: KETOROLAC TROMETHAMINE 0.5% EYE DROP 1 DROP DROPS OP SCH ×2 (08:31→08:48)
[2019-08-12] MEDS: PHENYLEPHRINE 2.5% OPHTH SOLN 15 ML BOTTLE OP SCH ×2 (08:32→08:42)
[2019-08-12] MEDS: OFLOXACIN 0.3% OPHTHALMIC SOLUTION 5 ML BOTTLE OP SCH ×2 (08:32→08:49)
[2019-08-12] MEDS: CYCLOPENTOLATE HCL 1% OPHTH SOLN 2 ML BOTTLE ONE ×2 (08:42→08:48)
[2019-08-12] MEDS ORDERED: EPINEPHrine/PF 1 MG/1 ML (1:1,000) AMPULE ONE (09:00)
[2019-08-12] MEDS ORDERED: LIDOCAINE HCL/PF 2% SDV 5ML VIAL ONE (09:01)
[2019-08-12] MEDS ORDERED: TETRACAINE 0.5% OPHTH SOLN 2 ML BOTTLE ONE (09:01)
[2019-08-12] MEDS ORDERED: LIDOCAINE HCL/PF 1% SDV 5ML VIAL ONE (09:01)
[2019-08-12] MEDS ORDERED: BUPIVACAINE HCL/PF 0.75% 10 ML VIAL ONE (09:01)
[2019-08-12] MEDS ORDERED: PROPOFOL 20 ML ONE (09:12)
[2019-08-12] MEDS ORDERED: MIDAZOLAM HCL 2 MG/2 ML SINGLE DOSE VIAL ONE (09:12)
[2019-08-12] MEDS ORDERED: LIDOCAINE HCL/PF 2% SDV 5ML VIAL PNB ONE ×2 (09:16→09:17)
[2019-08-12] MEDS ORDERED: BUPIVACAINE HCL/PF 0.75% 10 ML VIAL PNB ONE ×2 (09:16→09:17)
[2019-08-12] MEDS ORDERED: CHONDROITIN SU A/HYALUR SOD 1 KIT IO ONE (09:30)
[2019-08-12] MEDS ORDERED: EPINEPHrine/PF 1 MG/1 ML (1:1,000) AMPULE SQ ONE (09:38)
[2019-08-12 10:53] VITALS: BP 142/81; PULSE 63; TEMP 97.8
--- NOTE | 2019-08-12 23:17 | SPEC ---
DATE OF OPERATION: 08/12/2019 OPERATION: Phacoemulsification of left cataract with posterior chamber intraocular lens implantation, the lens used [id number], 24.5 Diopter, Serial No. [id number]. PREOPERATIVE DIAGNOSIS: Cataract left eye. POSTOPERATIVE DIAGNOSIS: Cataract left eye. SURGEON: Kristan Cabrera M.D. ANESTHESIA: Peribulbar/Modified [place]/MAC. COMPLICATIONS: None. PROCEDURE: The patient was brought to the operating room and correctly identified along with the operative site and a correct intraocular lens bruce. The patient was then given a peribulbar block under sedation with 5 mL of a 1:1 mixture of 2% Lidocaine and 0.5% Bupivacaine. Two to 3 mL of the same mixture was given as a modified [place] block. The eye was then prepped and draped in the usual sterile fashion including 5% Betadine solution in the conjunctival sac and an eyelid drape. An eyelid speculum was then placed into the eye. A paracentesis port was created. Viscoelastic was injected to inflate the anterior chamber. A temporal clear corneal wound was created. A continuous circular capsulorrhexis was performed. The nucleus was then hydro-dissected and removed phacoemulsification via the [id number] approach. The remaining cortical material was irrigated and aspirated from the eye. Viscoelastic was injected to inflate the capsular bag. The lens was injected into the capsular bag. Viscoelastic was then irrigated and aspirated from the eye. The intraocular lens was noted to be well centered and covered by the anterior capsular border. All wounds were found to be watertight. Topical Vancomycin was given. The eye patch and shield were placed. The patient was discharged from the operating room in stable condition. KRISTAN CABRERA M.D. RAFAELA/[id number]
== END 2019-08-12 10:53 | disposition home or self-care (01) ==
LOC: JASU-SURG 07:18
PROVIDERS: ATTEND Ophthalmology
PROC: 08RK3JZ Replacement of Left Lens with Synthetic Substitute, Percutaneous Approach (ICD-10-PCS; principal; 2019-08-12 09:00)
DX: H26.9 Unspecified cataract (principal); I10 Essential (primary) hypertension; E11.9 Type 2 diabetes mellitus without complications
CPT/HCPCS: 82962

== ENCOUNTER 2021-06-04 20:27 | Emergency (ER) | payer OTHER ==
[2021-06-04 20:39] VITALS: BMI 28.3
[2021-06-04] MEDS ORDERED: DEXAMETHASONE SOD PHOSPHATE 10 MG/1 ML VIAL IVPUSH ONE (21:16)
[2021-06-04] MEDS ORDERED: ALBUTEROL SO4 2.5/IPRATROPIUM 0.5 INH SOL 3 ML VIAL.NEB. NEB ONE ×2 (21:16→21:32)
[2021-06-04] MEDS ORDERED: DEXAMETHASONE SOD PHOSPHATE 10 MG/1 ML VIAL ONE (21:32)
[2021-06-04 22:46] LABS: BASO % 1.2 % (0-2.0); EOS % 3.8 % (0-4.5); HEMOGLOBIN 14.7 GM/dL (10.7-15.3); LYMPH % 49.6 % (8-40); MCH 27.8 pg (25.7-33.7); MCHC 32.7 g/dl (32.0-36.0); MEAN CELL VOLUME 85.2 fl (80-96); MONO % 8.3 % (3.8-10.2); NEUT % 37.1 % (42.8-82.8); PLATELET COUNT 283 10^3/uL (134-434); RBC 5.28 M/mm3 (3.60-5.2); RDW 13.8 % (11.6-15.6); WHITE BLOOD COUNT 5.5 K/mm3 (4.0-10.0)
[2021-06-04 23:05] LABS: CHLORIDE 108 mmol/L (98-107); SODIUM 140 mmol/L (136-145)
[2021-06-04 23:08] LABS: ALBUMIN 3.9 g/dl (3.4-5.0); ANION GAP 6 MMOL/L (8-16); BLOOD UREA NITROGEN 17.2 mg/dL (7-18); CO2 27 mmol/L (21-32); GLUCOSE,RANDOM 98 mg/dL (74-106)
[2021-06-04 23:11] LABS: CREATININE 0.9 mg/dL (0.55-1.3); SGOT/AST 27 U/L (15-37); SGPT/ALT 39 U/L (13-61)
[2021-06-04 23:13] LABS: BILIRUBIN,TOTAL 0.4 mg/dL (0.2-1); TOT PROT 7.7 g/dl (6.4-8.2)
[2021-06-04 23:14] LABS: ALK PHOS 84 U/L (45-117)
[2021-06-04 23:53] VITALS: BP 146/75; PULSE 67; TEMP 98
== END 2021-06-04 23:55 | disposition home or self-care (01) ==
LOC: JER 20:27
PROC: 3E033GC Introduction of Other Therapeutic Substance into Peripheral Vein, Percutaneous Approach (ICD-10-PCS; principal; 2021-06-04)
PROC: 3E0F7GC Introduction of Other Therapeutic Substance into Respiratory Tract, Via Natural or Artificial Opening (ICD-10-PCS; 2021-06-04)
DX: J45.901 Unspecified asthma with (acute) exacerbation (principal)
CPT/HCPCS: 36415; 71045-TC-FY; 80053; 82550; 82553; 84484; 85025; 93005; 93010; 94640; 96374; 99285-25; C9803; J1100; U0003; U0005